=== PATIENT | male | born 1965 | race Caucasian/White ===

== ENCOUNTER 2017-05-08 20:53 | Emergency (ER) | payer MEDICAID ==
--- NOTE | 2017-05-08 21:00 | NUR ---
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 "
== END 2017-05-08 21:00 | disposition left against medical advice (07) ==
LOC: SED 20:53
DX: T82.898A Other specified complication of vascular prosthetic devices, implants and grafts, initial encounter (principal)
CPT/HCPCS: J7030

== ENCOUNTER 2017-05-09 15:24 | Emergency (ER) | payer MEDICAID ==
[~2017-05-09] VITALS: Ht 188 cm; Wt 90.7 kg
[2017-05-09 15:24] VITALS: BP_SYST 151
[2017-05-09] MEDS ORDERED: NACL 0.9% 1,000 ML IV ONE ×2 (15:32→15:45)
[2017-05-09] MEDS ORDERED: LORazepam 2 MG/ML VIAL (FOR ER USE) IVP ONE (16:00)
[2017-05-09 16:24] LABS: BASOPHILS % (AUTO) 0.5 % (0.0-2.0); EOSINOPHILS # (AUTO) 0.2 K/uL (0.0-0.4); EOSINOPHILS % (AUTO) 2.2 % (0.0-4.0); HEMOGLOBIN 10.9 g/dL (14.0-18.0); LYMPHOCYTES # (AUTO) 1.4 K/uL (1.0-5.5); LYMPHOCYTES % (AUTO) 17.9 % (20.5-51.5); MEAN CORPUSCULAR HEMOGLOBIN 30 pg (27-31); MEAN CORPUSCULAR HGB CONC 34 % (32-36); MEAN CORPUSCULAR VOLUME 89 fL (79.0-98.0); MONOCYTES # (AUTO) 0.6 K/uL (0.0-1.0); MONOCYTES % (AUTO) 7.2 % (1.7-9.3); NEUTROPHILS # (AUTO) 5.9 K/uL (1.8-7.7); NEUTROPHILS % (AUTO) 72.2 % (40.0-70.0); PLATELET COUNT (AUTO) 436 K/uL (130-430); RED CELL DISTRIBUTION WIDTH 13.9 % (9.0-15.0); WHITE BLOOD COUNT (AUTO) 8.1 K/uL (4.8-10.8)
[2017-05-09 16:30] LABS: PROTHROMBIN TIME 9.8 SECS (9.5-12.5)
[2017-05-09 17:53] LABS: CALCIUM 9.6 mg/dL (8.4-11.0); CREATININE 1.06 mg/dL (0.55-1.30); POTASSIUM 3.2 mmol/L (3.5-5.1)
[2017-05-09 18:06] LABS: ALBUMIN 3.1 g/dL (3.4-4.8); TOTAL BILIRUBIN 0.2 mg/dL (0.0-1.0)
[2017-05-09 18:45] LABS: BILIRUBIN,URINE NEGATIVE (NEGATIVE); BLOOD, URINE NEGATIVE (NEGATIVE); CLARITY/URINE CLEAR (CLEAR); COLOR,URINE YELLOW (YELLOW); GLUCOSE,URINE NEGATIVE (NEGATIVE); KETONES,URINE NEGATIVE (NEGATIVE); LEUKOCYTE ESTERASE ,URINE NEGATIVE (NEGATIVE); NITRITE, URINE NEGATIVE (NEGATIVE); PH,URINE 6.5 (5.0-8.0); PROTEIN URINE NEGATIVE (NEGATIVE); UROBILINOGEN,URINE 0.2 (0.2-1.0)
[2017-05-09] MEDS ORDERED: cefTRIAXone 2 GM VIAL ONE (19:01)
[2017-05-09 20:58] VITALS: BP_SYST 124
== END 2017-05-09 20:58 | disposition home or self-care (01) ==
LOC: SED 15:24
DX: F41.9 Anxiety disorder, unspecified (principal); J20.9 Acute bronchitis, unspecified; M19.90 Unspecified osteoarthritis, unspecified site; M54.30 Sciatica, unspecified side
CPT/HCPCS: 36415; 71045; 80053; 81003; 82150; 84484; 85025; 85610; 85730; 93005; 96361; 96365; 96375; 99285; J0696; J2060; J7030; J7060